=== PATIENT | male | born 1960 | race African-American/Black ===

== ENCOUNTER 2017-02-02 19:02 | Emergency (ER) | payer MEDICAID ==
[~2017-02-02] VITALS: Ht 180.3 cm; Wt 93.9 kg
[2017-02-02] MEDS ORDERED: NS 1000ML 1,000 ML ONE (19:20)
[2017-02-02] MEDS ORDERED: NS IV STA (19:20)
[2017-02-02] MEDS ORDERED: TORADOL ONE (19:20)
[2017-02-02] MEDS ORDERED: TORADOL IV STA (19:20)
--- NOTE | 2017-02-02 19:20 | NUR ---
ARRIVAL: ARRIVED BY AMBULANCE COMPLAINED OF ABDOMINAL PAIN 03/06. HAS BEEN GIVEN 100 FENTANYL, HAS A 20 GAUGE IV IN LEFT ARM.
--- NOTE | 2017-02-02 19:23 | ER.PDOC ---
General Chief Complaint: Abdomen Pain Stated Complaint: ABD PAIN Time seen by MD: 19:21 Source: patient Exam Limitations: no limitations History of Present Illness Initial Comments Abdominal pain for about 3-4 weeks. Seen at [facility] ED 2 weeks ago for same pain with unremarkable findings there. Severity/Quality: moderate, sharpness Radiation: no radiation Associated Symptoms: denies symptoms Exacerbated by: nothing Relieved By: nothing Allergies: Coded Allergies: No Known Allergies (Unverified , 02/02/17) Vital Signs First Vital Signs Date Time Temp Pulse Resp B/P (MAP) Pulse Ox O2 Delivery O2 Flow Rate FiO2 02/02/17 19:03 97.7 91 12 100 02/02/17 19:08 141/80 (100) Last Vital Signs Date Time Temp Pulse Resp B/P (MAP) Pulse Ox O2 Delivery O2 Flow Rate FiO2 02/02/17 19:08 97.7 88 12 141/80 (100) 100 Social History Smoking: greater than 1 pack/day Alcohol Use: heavy Drug Use: none Constitutional: no symptoms reported Respiratory: no symptoms reported Cardiovascular: no symptoms reported Gastrointestinal: see HPI Genitourinary: no symptoms reported Musculoskeletal: no symptoms reported Skin: no symptoms reported All Other Systems: Reviewed and Negative Physical Exam General Appearance: No Apparent Distress, WD/WN Neck: Non-Tender, Full Range of Motion, Supple, Normal Inspection Respiratory: chest non-tender, lungs clear, normal breath sounds, no respiratory distress, no accessory muscle use Cardiovascular: Normal Peripheral Pulses, Regular Rate, Rhythm, No Edema, No Gallop, No JVD, No Murmur Gastrointestinal: Normal Bowel Sounds, No Organomegaly, No Pulsatile Mass, Guarding, Tenderness (generalized) Back: Normal Inspection, No CVA Tenderness, No Vertebral Tenderness Extremities: Normal Range of Motion, Non-Tender, Normal Inspection, No Pedal Edema, No Calf Tenderness, Normal Capillary Refill, Pelvis Stable Neurologic/Psychiatric: tube wrapper II-XII NML as Tested, No Motor/Sensory Deficits, Alert, Normal Mood/Affect, Oriented x 3 Skin: Normal Color, Warm/Dry EKG/XRAY/CT/US CT Comments: Nothing acute on CT abdomen/pelvis Course Blood Pressure Systolic: 141 Blood Pressure Diastolic: 80 Blood Pressure Mean: 100 Departure Time of Disposition: 20:50 Disposition: 01 HOME, SELF-CARE Impression: Primary Impression: Nonspecific abdominal pain Condition: Stable Additional Instructions: F/U with your PCP in 1-2 days FABBY MONGE MD Feb 02, 2017 19:22
--- NOTE | 2017-02-02 19:28 | NUR ---
LAB: IN ROOM DOING BLOOD DRAWS.
[2017-02-02 19:32] LABS: BASOPHIL % 0.3 % (0.0-0.2); HEMATOCRIT 38.8 % (37.0-53.0); HEMOGLOBIN 14.1 g/dL (13.9-16.3); LYMPHOCYTES # 0.6 10^3/uL (1.0-4.8); LYMPHOCYTES % 15.1 % (24.0-44.0); MEAN CELL HGB 31.4 pg (26-34); MEAN CELL HGB CONCENTRATION 36.3 g/dL (33-37); MEAN CORP VOLUME 86.4 fL (78-100); MEAN PLATELET VOLUME 11.9 fL (7.8-11.0); MONOCYTES # 0.2 10^3/uL (0.3-0.8); NEUTROPHIL # 3.1 10^3/uL (1.8-7.7); NEUTROPHILS % 78.3 % (41.0-85.0); RED CELL DISTRIBUTION WIDTH 12.8 % (11.5-14.5)
--- NOTE | 2017-02-02 19:38 | NUR ---
PAIN REASSESSMENT PATIENT STATES THAT PAIN IS ABOUT A 4 /10. LAYING DOWN RESTING IN BED.
[2017-02-02 19:51] LABS: CALCIUM 9.4 mg/dL (8.4-10.5)
--- NOTE | 2017-02-02 19:58 | NUR ---
URINE COLLECTED AND TAKEN TO LAB
--- NOTE | 2017-02-02 20:01 | NUR ---
CT: TO CT VIA WC
[2017-02-02] MEDS ORDERED: ZOFRAN IV STA (20:02)
[2017-02-02] MEDS ORDERED: ZOFRAN ONE (20:02)
[2017-02-02 20:11] LABS: APPEARANCE,URINE CLEAR (CLEAR); BILIRUBIN,URINE NEGATIVE (NEGATIVE); UA COLOR YELLOW (YELLOW); UROBILINOGEN,URINE NORMAL (NEGATIVE)
--- NOTE | 2017-02-02 20:14 | NUR ---
FROM CT: BACK TO ROOM
--- NOTE | 2017-02-02 20:39 | DIREP ---
PROCEDURE:CT ABDOMEN/PELVIS W/ CONTRAST COMPARISON:None. INDICATIONS:abdominal pain TECHNIQUE:Axial images were created through the abdomen and pelvis with non-ionic intravenous contrast material. No oral contrast was administered. Sagittal and coronal reconstructions were performed from source images. FINDINGS: LUNG BASES:Mild infiltrate or scarring right lung base. Small hiatal hernia. LIVER:Diffusely diminished hepatic attenuation consistent with hepatic steatosis. BILIARY:Normal. No visible dilatation or calcification. PANCREAS:Normal. No lesion, fluid collection, ductal dilatation, or atrophy. SPLEEN:Normal. No enlargement or focal lesion. ADRENALS:Normal. No mass or enlargement. URINARY TRACT:Normal. No focal lesions or hydronephrosis. AORTA/VASCULAR:Normal. No aneurysm. RETROPERITONEUM:Normal. No mass or adenopathy. BOWEL/MESENTERY:Normal. There is no intestinal obstruction, free fluid, free air or mesenteric inflammatory changes. Unremarkable appendix. ABDOMINAL WALL:Normal. No mass or hernia. PELVIC ORGANS:Normal. No visible mass. Pelvic organs appropriate for patient age. BONES:Age indeterminate mild compression fracture deformity superior endplate of L1. Clinical correlation is recommended with additional imaging as indicated. Otherwise grade 1 anterolisthesis of L4 on L5 with moderate annular disc bulging resulting in spinal canal narrowing. OTHER:Negative. CONCLUSION: 1. No obvious acute intra-abdominal or pelvic abnormality. 2. Age indeterminate mild compression fracture deformity superior endplate of L1. Clinical correlation is recommended with additional imaging as indicated. Dictated by: Toni Marie M.D. on 02/02/2017 at 08:33 PM
--- NOTE | 2017-02-02 21:05 | NUR ---
IV IV TAKEN OUT. CATH IN TACT. "PAIN LEVEL IMPROVED", STATED BY PATIENT.
[2017-02-02 21:21] VITALS: BP 117/78
== END 2017-02-02 21:10 | disposition home or self-care (01) ==
LOC: ER 19:02
DX: R10.84 Generalized abdominal pain (principal); F17.200 Nicotine dependence, unspecified, uncomplicated
CPT/HCPCS: 36415; 74177; 80053; 81002; 83690; 85025; 85610; 85730; 86677; 93005; 96361; 96374; 96375; 99285; J1885; J2405; J7030; Q9967